=== PATIENT | male | born 1980 | race Caucasian/White ===

== ENCOUNTER 2017-05-22 20:50 | Emergency (ER) | payer OTHER ==
--- NOTE | 2017-05-22 21:10 | PDOC ---
History of Present Illness - General History Source: Patient Exam Limitations: No Limitations <Ulysses Huff - Last Filed: 05/22/17 21:55> - General History Source: Patient Exam Limitations: No Limitations <YanelyroxPaola Gauthierjuanitorito Reeves - Last Filed: 05/22/17 22:50> - General Stated Complaint: CHEST PAIN Time Seen by Provider: 05/22/17 20:54 - History of Present Illness Initial Comments: 05/22/17 21:42 The patient is a 36 year old male, with no significant past medical history, who presents to the emergency department with, chest pain and shortness of breath. He reports his chest pain has been ongoing for two days and is limited to the midsternal region. Secondary to his symptoms, he reports a pain similar to his chest pain in the same region of his back. He reports his shortness of breath to be ongoing for weeks. He reports intermittent tingling in his periorbital region and fingers. The patient reports he is under a significant amount of stress which he is experiencing anxiety and is seeing a psychologist. He denies orthopnea. He denies any recent fevers, chills, headache or dizziness. He denies any recent nausea, vomit, diarrhea or constipation. H He denies any recent dysuria, frequency, urgency or hematuria. PAST MEDICAL HISTORY: no significant history PAST SURGICAL HISTORY: no significant history FAMILY HISTORY: no pertinent history SOCIAL HISTORY: Pt lives with family and is employed. MEDICATIONS: reviewed ALLERGIES: As per nursing notes ROS: General: No fevers or chills, no weakness, no weight loss HEENT: No change in vision. No sore throat,. No ear pain CardioVascular: +Chest pain. +Shortness of breath. Respiratory:No cough, or wheezing. Gastrointestinal: no nausea, vomiting, diarrhea or constipation, No rectal bleeding Genitourinary: No dysuria, hematuria, or frequency Musculoskeletal: +Tingling in the periorbital region and hands. No joint or muscle pain or swelling Neurologic: No headache, vertigo, dizziness or loss of consciousness Psychiatric: nor depression Skin: No rashes or easy bruising Endocrine: no increased thirst or abnormal weight change Allergic: no skin or latex allergy All other systems reviewed and normal Physical Exam: General: +Anxious. Well-nourished well-developed individual, no acute distress HEENT: Throat: Normal, tonsils normal, no erythema or exudate Neck: Supple, no meningeal signs, no lymphadenopathy Eyes::Pupils equal reactive and round, extraocular motion intact Chest: Nontender to palpation Cardiac: S1-S2 normal, regular rate and rhythm, no murmurs rubs or gallops Respiratory: Lungs clear to auscultation bilateral Extremities: Warm, dry, no cyanosis, clubbing, or edema Skin: No rashes Neuro: Alert and oriented x3, nonfocal exam, grossly intact, normal gait Psych: Normal mood and affect Vent. rate: 66 bpm MI interval: 202 ms QRS duration: 90 ms QT/QTc: 400/419 ms P-R-T axes: 35 59 31 Normal sinus rhythm Normal ECG (Ulysses Huff) A portion of this note was documented by scribe services under my direction. I have reviewed the details of the note, within reason, and agree with the documentation. The case summary and management plan written by me. Medical decision making: This is a 36-year-old male who comes in with some chest pain mostly likely secondary to anxiety and stress in his life. Patient was noted to have some hyperventilation with periorbital paresthesias and finger paresthesias. Patient has no risk factors for coronary artery disease however in order to reassure the patient I am ordering a basic workup of a CBC, comp and EKG and chest x-ray. We will reassess and follow up on the workup 05/22/17 22:21 Reassessment patient remains clinically unchanged but is feeling better. EKG shows normal sinus rhythm, no acute ST-T wave changes normal EKG Chest x-ray is normal with no acute pathology Blood work is normal with normal troponin Patient's heart score is 0 Patient reassured and discharged patient will follow-up with his therapist regarding his stress and anxiety. Patient given copies of his workup (Rebecca Gamino I) Past History <Ulysses Huff - Last Filed: 05/22/17 21:55> <Rebecca Gamino I - Last Filed: 05/22/17 22:50> - Past Medical History Allergies/Adverse Reactions: Allergies Allergy/AdvReac Type Severity Reaction Status Date / Time No Known Drug Allergies Allergy Verified 05/22/17 21:06 Home Medications: Ambulatory Orders Triamcinolone Acetonide [Nasacort] 10.8 ml NS PRN PRN 05/22/17 - Vital Signs Last Vital Signs Temp Pulse Resp BP Pulse Ox 98.3 F 96 H 16 131/95 100 05/22/17 21:08 05/22/17 21:08 05/22/17 21:08 05/22/17 21:08 05/22/17 21:08 Heart Score/ECG Review - History History: Slightly suspicious - Electrocardiogram EKG: Normal - Age Age: </= 45 - Risk Factors Based on the list above the patient has:: No risk factors known - Troponin Troponin: </= normal limit - Score Heart Score - Total: 0 <Rebecca Gamino I - Last Filed: 05/22/17 22:50> ED Treatment Course - LABORATORY CBC & Chemistry Diagram: 05/22/17 22:00 05/22/17 22:00 <Rebecca Gamino I - Last Filed: 05/22/17 22:50> - ADDITIONAL ORDERS Additional order review: Laboratory Results 05/22/17 05/22/17 05/22/17 22:00 22:00 22:00 Sodium 138 Potassium 3.6 Chloride 105 Carbon Dioxide 26 Anion Gap 7 L BUN 21 H Creatinine 0.9 Creat Clearance w eGFR > 60 Random Glucose 139 H Calcium 8.9 Total Bilirubin 0.4 AST 29 ALT 37 Alkaline Phosphatase 56 Creatine Kinase 80 Troponin I < 0.03 Total Protein 7.0 Albumin 4.3 05/22/17 22:00 RBC 5.47 MCV 80.5 MCHC 33.6 RDW 12.4 MPV 8.1 Neutrophils % 48.0 Lymphocytes % 35.0 Monocytes % 8.6 Eosinophils % 7.2 H Basophils % 1.2 - RADIOLOGY Radiology Studies Ordered: Category Date Time Status CHEST X-RAY PORTABLE* [RAD] Stat Radiology 05/22/17 21:29 Taken *DC/Admit/Observation/Transfer <Ulysses Huff - Last Filed: 05/22/17 21:55> - Discharge Dispostion Admit: No <Rebecca Gamino I - Last Filed: 05/22/17 22:50> Diagnosis at time of Disposition: Anxiety about health - Discharge Dispostion Disposition: HOME Condition at time of disposition: Stable - Referrals Referrals: ON STAFF,NOT [Primary Care Provider] - - Patient Instructions Additional Instructions: Your workup was negative for any acute medical cause for your symptoms. This included the cardiogram blood work and chest x-ray. Continue to follow up with your therapist. Return to the emergency department immediately with ANY new, persistent or worsening symptoms. Continue any medications as previously prescribed by your physician. You should follow up with your primary doctor as soon as possible regarding today's emergency department visit. . Please make sure your doctor reviews the results of your emergency evaluation. Thank you for coming to the Emergency Department today for your care. It was a pleasure to see you today. Please note that your evaluation is INCOMPLETE until you follow-up with your doctor. - Post Discharge Activity - Attestations Scribe Attestion: 05/22/17 21:43 Documentation prepared by Ulysses Huff, acting as medical screener for Rebecca Gamino MD. (Ulysses Huff)
[2017-05-22 21:11] VITALS: BP 131/95; PULSE 96; TEMP 98.3; BMI 28.1
[2017-05-22 22:27] LABS: ALBUMIN 4.3 g/dl (3.5-5.0); ALK PHOS 56 U/L (32-92); ANION GAP 7 (8-16); BILIRUBIN,TOTAL 0.4 mg/dl (0.2-1.0); BLOOD UREA NITROGEN 21 mg/dl (7-18); CALCIUM 8.9 mg/dl (8.4-10.2); CHLORIDE 105 mmol/L (98-107); CO2 26 mmol/L (22-28); CREATININE 0.9 mg/dl (0.6-1.3); GLUCOSE,RANDOM 139 mg/dl (74-106); POTASSIUM 3.6 mmol/L (3.5-5.1); SGOT/AST 29 U/L (10-42); SGPT/ALT 37 U/L (10-40); SODIUM 138 mmol/L (136-145)
[2017-05-22 22:38] LABS: BASO % 1.2 % (0-2.0); EOS % 7.2 % (0-4.5); HEMOGLOBIN 14.8 GM/dl (11.7-16.9); MCHC 33.6 g/dl (32.0-35.9); MEAN CELL VOLUME 80.5 fl (80-96); MEAN PLT VOLUME 8.1 fl (7.5-11.1); MONO % 8.6 % (3.8-10.2); PLATELET COUNT 224 K/MM3 (134-434); RBC 5.47 M/mm3 (4.00-5.60); RDW 12.4 % (11.9-15.9); WHITE BLOOD COUNT 5.5 K/mm3 (4.0-10.8)
--- NOTE | 2017-05-24 14:46 | EKG ---
Test Reason : Blood Pressure : / mmHG Vent. Rate : 066 BPM Atrial Rate : 066 BPM P-R Int : 202 ms QRS Dur : 090 ms QT Int : 400 ms P-R-T Axes : 035 059 031 degrees QTc Int : 419 ms NORMAL SINUS RHYTHM NORMAL ECG NO PREVIOUS ECGS AVAILABLE Confirmed by DOUG JAIME MD ([id number]) on 05/24/2017 2:46:06 PM Referred By: LONDON THOMPSON Confirmed By:DOUG JAIME MD
== END 2017-05-22 22:53 | disposition home or self-care (01) ==
LOC: FER 20:50
DX: F41.8 Other specified anxiety disorders (principal)
CPT/HCPCS: 36415; 71045-TC-FY; 80053; 82550; 84484; 85025; 93005; 99281-25

== ENCOUNTER 2023-04-16 23:53 | Emergency (ER) | payer OTHER ==
[2023-04-17 00:11] VITALS: BP 144/90; PULSE 92; RESP 16; TEMP 98.9; BMI 28.1
== END 2023-04-17 01:59 | disposition home or self-care (01) ==
LOC: FER 23:53
DX: R07.89 Other chest pain (principal)
CPT/HCPCS: 36415; 82550; 84484; 93005; 99284-25